=== PATIENT | male | born 1980 | race Hispanic/Latino ===

== ENCOUNTER 2018-11-24 07:17 | Inpatient (IN) | payer BC ==
[~2018-11-24] VITALS: Ht 165.1 cm; Wt 143.3 kg
[2018-11-24 07:34] LABS: BASOPHILS % (AUTO) 1.1 % (0.0-5.0); EOSINOPHILS % (AUTO) 2.4 % (0.0-8.0); HEMATOCRIT 42.7 % (42-54); LYMPHOCYTES % (AUTO) 23.5 % (21.0-51.0); MEAN CORPUSCULAR HEMOGLOBIN 31.6 pg (27.0-33.0); MEAN CORPUSCULAR HGB CONC 34.9 g/dL (32.0-36.0); MEAN CORPUSCULAR VOLUME 90.5 fL (79-99); MONOCYTES % (AUTO) 9.1 % (3.0-13.0); NEUTROPHILS % (AUTO) 63.9 % (40.0-77.0); PLATELET COUNT (AUTO) 228 K/uL (130-400); RED BLOOD CELL COUNT(AUTO) 4.72 MIL/uL (4.50-6.20); RED CELL DISTRIBUTION WIDTH 12.7 % (11.0-15.5); WHITE BLOOD COUNT (AUTO) 8.5 K/uL (4.8-10.8)
[2018-11-24] MEDS ORDERED: SODIUM CHLORIDE 0.9% 1000ML 1,000 ML IV ONE (07:35)
[2018-11-24 07:42] LABS: CREATININE 0.7 mg/dL (0.5-1.5); POTASSIUM 3.6 mmol/L (3.5-5.1)
[2018-11-24 07:48] LABS: ALBUMIN 3.3 g/dL (3.5-5.0); BILIRUBIN,TOTAL 0.3 mg/dL (0.2-1.0); TOTAL PROTEIN, SERUM 7.5 g/dL (6.0-8.3)
[2018-11-24] MEDS ORDERED: IOHEXOL 350 MG/ML 100ML INFUS..BTL IV ONE (07:52)
[2018-11-24] MEDS ORDERED: ONDANSETRON HCL 4 MG/2 ML VIAL ONE (09:07)
[2018-11-24] MEDS ORDERED: MORPHINE SULFATE 4 MG/1ML SYG ONE (09:07)
[2018-11-24] MEDS ORDERED: NITROGLYCERIN 1GM/1 INCH PACKET TD ONE (09:37)
[2018-11-24] MEDS ORDERED: ASPIRIN 81MG TAB.CHEW ONE (09:38)
[2018-11-24] MEDS: ENOXAPARIN SODIUM 30 MG/0.3 ML SQ SCH (10:00)
[2018-11-24 10:22] LABS: APPEARANCE,URINE Clear (CLEAR); BILIRUBIN,URINE Negative (NEGATIVE); COLOR,URINE Yellow (YELLOW); GLUCOSE, URINE (UA) Negative (NEGATIVE); KETONES,URINE Negative (NEGATIVE); LEUKOCYTE ESTERASE ,URINE Negative (NEGATIVE); NITRATE,URINE Negative (NEGATIVE); OCCULT BLOOD,URINE Negative (NEGATIVE); PROTEIN,URINE POS 1+ mg/dL (NEGATIVE); UROBILINOGEN,URINE 0.2 mg/dL (0.2-1.0)
[2018-11-24 10:27] LABS: AMPHET/METH SCREEN,URINE NEGATIVE (NEGATIVE); BARBITURATE SCREEN, URINE NEGATIVE (NEGATIVE); BENZODIAZEPINES SCREEN,URINE NEGATIVE (NEGATIVE); CANNABINOID SCREEN,URINE NEGATIVE (NEGATIVE); COCAINE SCREEN,URINE NEGATIVE (NEGATIVE); OPIATE SCREEN,URINE NEGATIVE (NEGATIVE); PHENCYCLIDINE SCREEN,URINE NEGATIVE (NEGATIVE)
[2018-11-24] MEDS: SODIUM CHLORIDE 0.9% 1000ML 1,000 ML IV SCH ×2 (10:32→20:32)
[2018-11-24] MEDS ORDERED: NITROGLYCERIN 0.4 MG SL TAB SL PRN (10:45)
[2018-11-24] MEDS ORDERED: LACTULOSE 20 GM/30 ML UDCUP PO PRN (10:45)
[2018-11-24] MEDS ORDERED: ONDANSETRON HCL 4 MG/2 ML VIAL IV PRN (10:45)
[2018-11-24] MEDS ORDERED: HYDRALAZINE HCL 20 MG/ML VIAL IV PRN (10:45)
[2018-11-24] MEDS ORDERED: ACETAMINOPHEN 325 MG TAB PO PRN (10:45)
[2018-11-24] MEDS ORDERED: GUAIFENESIN-DM 200/20 MG 10 ML PO PRN (10:45)
[2018-11-24] MEDS ORDERED: DIPHENHYDRAMINE HCL 25 MG CAPSULE PO PRN (10:45)
[2018-11-24] MEDS ORDERED: DiphenhydrAMINE HCL 50 MG/ML VIAL IV PRN (10:45)
[2018-11-24] MEDS ORDERED: MAG HYDROX/AL HYDROX/SIMETH ES 30 ML SUSP UDCUP PO PRN (10:45)
[2018-11-24 10:46] LABS: BACTERIA,URINE None Seen /HPF (None Seen); MUCUS,URINE Few LPF (None Seen); RBC,URINE None Seen /HPF (0-1); SQUAMOUS EPITHELIAL CELL,UR 0-2 /HPF (0-2); WBC,URINE None Seen /HPF (0-1)
[2018-11-24 10:47] LABS: HYALINE CASTS, URINE 0-1 /LPF (0-1 /LPF)
[2018-11-24 11:27] VITALS: BP 126/52
[2018-11-24] MEDS ORDERED: ATEN1TAB4 PO (11:27)
[2018-11-24] MEDS ORDERED: LOVA20TA3 PO (11:27)
[2018-11-24 15:38] VITALS: BP 121/51
[2018-11-24] MEDS: ACETAMINOPHEN 325 MG TAB PO PRN (16:14)
[2018-11-24 19:31] VITALS: BP 130/58
[2018-11-24] MEDS: METOPROLOL TARTRATE 25 MG TAB PO SCH (20:31)
[2018-11-25] VITALS: BP 138/76
[2018-11-25] MEDS: SODIUM CHLORIDE 0.9% 1000ML 1,000 ML IV SCH (02:56)
[2018-11-25] MEDS: ACETAMINOPHEN 325 MG TAB PO PRN (02:57)
[2018-11-25 03:40] VITALS: BP 127/76
[2018-11-25 04:22] LABS: BASOPHILS % (AUTO) 0.7 % (0.0-5.0); EOSINOPHILS % (AUTO) 2.4 % (0.0-8.0); HEMATOCRIT 41.9 % (42-54); LYMPHOCYTES % (AUTO) 30.4 % (21.0-51.0); MEAN CORPUSCULAR HEMOGLOBIN 31.6 pg (27.0-33.0); MEAN CORPUSCULAR HGB CONC 34.7 g/dL (32.0-36.0); MEAN CORPUSCULAR VOLUME 91.1 fL (79-99); NEUTROPHILS % (AUTO) 58.5 % (40.0-77.0); NUCLEATED RED BLOOD CELLS 0.1 % (0.0-0.19); PLATELET COUNT (AUTO) 208 K/uL (130-400); RED CELL DISTRIBUTION WIDTH 12.5 % (11.0-15.5); WHITE BLOOD COUNT (AUTO) 8.5 K/uL (4.8-10.8)
[2018-11-25 04:47] LABS: ALBUMIN 3.2 g/dL (3.5-5.0); BILIRUBIN,TOTAL 0.6 mg/dL (0.2-1.0); CREATININE 0.8 mg/dL (0.5-1.5); POTASSIUM 3.3 mmol/L (3.5-5.1); TOTAL PROTEIN, SERUM 7.1 g/dL (6.0-8.3)
[2018-11-25] MEDS ORDERED: POTASSIUM CHLORIDE 20 MEQ ERTAB PO ONE (06:05)
[2018-11-25 07:00] VITALS: BP 147/79
--- NOTE | 2018-11-25 08:00 | NUR ---
AM NOTE Awake, alert, and oriented x3. Denies any chest pain or shortness of breath. Dr. Hyde in to see pt, update given. Records requested from Dr. Lopez office as ordered. Plan of care discussed, verbalized understanding. Baudilio wells within reach.
[2018-11-25] MEDS: METOPROLOL TARTRATE 25 MG TAB PO SCH (08:22)
[2018-11-25] MEDS: ENOXAPARIN SODIUM 30 MG/0.3 ML SQ SCH (08:22)
[2018-11-25] MEDS ORDERED: ASPIRIN 81MG TAB.CHEW PO SCH (09:00)
[2018-11-25 11:00] VITALS: BP 151/92
--- NOTE | 2018-11-25 13:20 | NUR ---
ECHO Dr. Hernandez notified that echocardiogram has been done, stated he is okay with pt being discharged and will follow-up in his office. Dr. Hyde made aware.
[2018-11-25 16:00] VITALS: BP 133/78
--- NOTE | 2018-11-25 16:50 | NUR ---
SADIE PLAN PATIENT GETTING PROCEDURE. NO NEEDS VERBALIZED BY NURSING STAFF. LIZETH WILL CONTINUE TO FOLLOW. Addendum: 11/25/18 at 1651 by RAJESH KERNS RN CM Amended: Links added.
[2018-11-25] MEDS ORDERED: METO25 PO (17:50)
[2018-11-25] MEDS ORDERED: ATOR40TA69 PO (17:50)
[2018-11-25] MEDS ORDERED: ASPI-1005 PO (17:50)
--- NOTE | 2018-11-25 18:16 | NUR ---
DC Pt taken to lobby in wheelchair. Peripheral IV removed, catheter intact upon removal. All belongings given to pt and . Instructed to follow-up with appts as ordered, verbalized understanding.
[2018-11-25] MEDS ORDERED: ATORVASTATIN CALCIUM 40 MG TABLET PO SCH (21:00)
== END 2018-11-25 18:20 | disposition home or self-care (01) | DRG 313 ==
LOC: EDH 07:17 → EDHIP 10:32 → 2BH 14:43
PROVIDERS: ADMIT Family Medicine; ATTEND Family Medicine
DX: R07.89 Other chest pain (principal); Z68.43 Body mass index [BMI] 50.0-59.9, adult; I45.10 Unspecified right bundle-branch block; R79.89 Other specified abnormal findings of blood chemistry; I11.9 Hypertensive heart disease without heart failure; E66.01 Morbid (severe) obesity due to excess calories; V89.2XXA Person injured in unspecified motor-vehicle accident, traffic, initial encounter; Y92.410 Unspecified street and highway as the place of occurrence of the external cause; Y93.89 Activity, other specified; Y99.8 Other external cause status
CPT/HCPCS: 36415; 70450; 71260; 72125; 74177; 80053; 80061; 80305; 81001; 82550; 83690; 84484; 85025; 93005; 93306; G0378; J1650; J2270; J2405; J7030; Q9967